=== PATIENT | male | born 1950 | race Caucasian/White ===

== ENCOUNTER 2021-01-15 12:36 | Observation (INO) | payer MEDICARE, BC ==
[~2021-01-15] VITALS: Ht 190.5 cm; Wt 100.2 kg
[~2021-01-15 12:36] MED LIST: ADLT ASA LOW81 MG PO; ELIQUIS5 MG PO; LEVOTHYROXIN125 MCG PO; LIDODERM5 % EX; NORVASC5 M1 PO; OXYCODONE10 M1 PO; PREVAGEN10 MG PO; QC FOLIC ACID800 MCG PO; ZOCOR20 M1 PO
--- NOTE | 2021-01-15 12:40 | NUR ---
TO ROOM FOR TRIAGE
[2021-01-15 13:15] LABS: HEMATOCRIT 44.4 % (39.0-50.0); HEMOGLOBIN 14.4 g/dl (14.0-18.0); IMMATURE GRANULOCYTES 0.1 % (0.0-5.0); MEAN CELL VOLUME 90.2 fL CALC (80.0-100.0); MEAN CORPUSCULAR HGB 29.3 pG CALC (26.0-32.0); MEAN CORPUSCULAR HGB CONC 32.4 g/dL CAL (32.0-36.0); NEUT# 5.37 thou/uL (1.82-7.42); RED BLOOD COUNT 4.92 mill/uL (4.70-6.10); RED CELL DISTRI WIDTH 12.4 % (11.5-15.5)
[2021-01-15 13:31] LABS: ALBUMIN 4.5 g/dL (3.2-5.0); ALKALINE PHOSPHATASE 59 u/l (38-126); AMYLASE 66 u/l (30-110); ANION GAP 13 (6-22 (CALC)); BILIRUBIN, TOTAL 2.9 mg/dL (0.0-1.4); BUN 13 mg/dL (8-23); BUN/CREATININE RATIO 9 (12-20 (CALC)); CARBON DIOXIDE 26 mmol/l (22-30); CHLORIDE 102 mmol/l (95-108); CREATININE 1.5 mg/dL (0.7-1.3); GFR 46 ML/MIN (>=60 (CALC)); GFR FOR AFR.AMER. 56 ML/MIN (>=60 (CALC)); LIPASE 71 u/l (23-300); POTASSIUM 4.3 mmol/l (3.5-5.1); SGOT/AST 27 u/l (19-48); SODIUM 136 mmol/l (137-146); TOTAL PROTEIN 8.1 g/dL (6.3-8.2)
[2021-01-15 13:32] LABS: D-DIMER 0.27 mg/L (0.19-0.60)
--- NOTE | 2021-01-15 13:40 | NUR ---
PATIENT RESTING, SPOUSE AT BEDSIDE, NO DISTRESS. AWAITING RESULTS.
[2021-01-15 13:43] LABS: ACT PARTIAL THROMBO TIME 24.9 SECONDS (20.0-32.5); PROTHROMBIN TIME 10.8 SECONDS (9.0-12.5)
--- NOTE | 2021-01-15 14:30 | NUR ---
PATIENT RESTING, VSS. CONTINUING TO MONITOR, O2 SATS 98% ON 2L VIA NC PLACED BY RT
--- NOTE | 2021-01-15 15:26 | NUR ---
ATTEMPT TO CALL REPORT, NURSE WILL CALL BACK
--- NOTE | 2021-01-15 15:35 | NUR ---
REPORT CALLED TO SHELLY
--- NOTE | 2021-01-15 15:45 | NUR ---
Admission Note Report Given to: Transported by: Wheelchair X Stretcher Transported with: X Nurse Transporter X Patent IV X O2 X Supervisor Ovens Location: ICU X [facility]
--- NOTE | 2021-01-15 15:50 | NUR ---
REPORT RECEIVED FROM ANGELICA. PATIENT CAME FROM ER VIA STRECHTER BY NURSE. PATIENT AMBULATE TO THE BED. VS OBTAIN. SAFETY PRECAUTIONS REINFORCED AND CALL LIGHT IN REACH.
[2021-01-15 16:02] VITALS: BP 146/85
--- NOTE | 2021-01-15 16:10 | NUR ---
ASSESSMENT DONE. PTAIENT IS ALERT AND ORIENT X3. PATIENT IS TALKATIVE. RESPS EVEN AND UNLABORED. O2 AT 2L VIA NC. TELE IN PLACE PATIENT STATED PAIN IN BACK 02/14. 20 RAC THAT APPEAR HEALTHY AND FLUSH WELL. PATIENT DENIES ANY OTHER NEEDS AT THIS TIME. CALL LIGHT IN REACH.
[2021-01-15 19:00] VITALS: BP 133/79
--- NOTE | 2021-01-15 20:00 | NUR ---
PT ASSESSMENT COMPLETED AT THIS TIME. HE DENIES SOB OR CHEST PAIN AT THIS TIME, REPORTS THAT HIS BACK IS HURTING/CHRONIC BACK PAIN, AWAITING ON MEDICATION TO BE APPROVED BY PHARMACY. I CALLED AND CLARIFIED ORDER. DENIES ANY OTHER NEEDS AT THIS TIME.
[2021-01-15 23:30] VITALS: BP 133/72; BP 140/67
--- NOTE | 2021-01-16 | NUR ---
PT MEDICATED FOR PAIN 8/10 ON PAIN SCALE. HE IS MOVING AROUND IN THE BED, TALKATIVE AND LAUGHING. DENIES ANY OTHER COMFORT NEEDS AT THIS TIME. DENIES NEED FOR SNACK OR ALTERNATIVE DRINK OTHER THAN WATER. CALL LIGHT W/IN REACH. I DID ENCOURAGED HIM TO CALL IF HE HAS ANY NEEDS ARISE, VERBALIZED UNDERSTANDING. LAB ENTERING ROOM AT THIS TIME FOR DRAW.
[2021-01-16 03:21] VITALS: BP 110/64
--- NOTE | 2021-01-16 04:00 | NUR ---
IVF REPLENISHED AT THIS TIME. PT DENIES ANY NEEDS, REPORTS "JUST TRYING TO SLEEP."
--- NOTE | 2021-01-16 05:45 | NUR ---
NEW GUARD ARRIVED FOR PT ROOM.
[2021-01-16 06:36] LABS: ALKALINE PHOSPHATASE 45 u/l (38-126); ANION GAP 9 (6-22 (CALC)); BILIRUBIN, TOTAL 2.3 mg/dL (0.0-1.4); BUN 12 mg/dL (8-23); BUN/CREATININE RATIO 10 (12-20 (CALC)); CARBON DIOXIDE 27 mmol/l (22-30); CHLORIDE 105 mmol/l (95-108); CREATININE 1.3 mg/dL (0.7-1.3); GFR 55 ML/MIN (>=60 (CALC)); GFR FOR AFR.AMER. > 60 ML/MIN (>=60 (CALC)); POTASSIUM 4.6 mmol/l (3.5-5.1); SGOT/AST 21 u/l (19-48); SODIUM 136 mmol/l (137-146)
[2021-01-16 06:37] LABS: ALBUMIN 3.4 g/dL (3.2-5.0); TOTAL PROTEIN 6.2 g/dL (6.3-8.2)
[2021-01-16 06:46] LABS: HEMATOCRIT 38.9 % (39.0-50.0); HEMOGLOBIN 12.5 g/dl (14.0-18.0); MEAN CELL VOLUME 93.3 fL CALC (80.0-100.0); MEAN CORPUSCULAR HGB CONC 32.1 g/dL CAL (32.0-36.0); RED BLOOD COUNT 4.17 mill/uL (4.70-6.10); RED CELL DISTRI WIDTH 12.6 % (11.5-15.5)
[2021-01-16 07:26] VITALS: BP 114/64
--- NOTE | 2021-01-16 07:26 | NUR ---
PT SLEEPING UPON ENTERING ROOM. PTS VITALS AND ASSESSMENT DONE. PT ALERT AND ORIENTED. PT IS ON 2L OF O2. S1 AND S2 HEARD. LUNG SOUNDS CLEAR. BOWEL SOUNDS ACTIVE IN ALL 4 QUADRANTS. PEDAL PULSES EQUALLY STRONG BILATERALLY. PT'S IV HEALTHY AND PATENT. NO DISTRESS NOTED. PTS CALL LIGHT WITHIN REACH.
--- NOTE | 2021-01-16 08:10 | NUR ---
PT TAKEN VIA WC TO NUCLEAR MEDICINE FOR ORDERED ED TEST. PT IN STABLE CONDITION WITH O2 VIA NC @2L.
[2021-01-16 08:39] LABS: CHOLESTEROL HDL RATIO 1.9 (<4.4 (CALC))
--- NOTE | 2021-01-16 08:44 | NUR ---
PT ARRIVED FROM NUCLEAR MEDICINE IN STABLE CONDITION. PT WAS ON O2 VIA NC @2L, DENIES HOME USE, DENIES ANY SOB INCLUDING EXERTIONAL SOB. O2 CURRENTLY 100%, TITRATED DOWN TO 1 L, O2 SUSTAINING @ 100%. PT WEANED OFF OF O2, SUSTAINING 100%. PT ENCOURAGED TO PRESS CALL LIGHT IF HE WAS FEELING SOB. PT AGREEABLE AND VERBALIZES UNDERSTANDING.
--- NOTE | 2021-01-16 09:20 | NUR ---
DR ADAMS AND Rajesh AYALA SECURITY EXPERT AT BEDSIDE DISCUSSING POC
--- NOTE | 2021-01-16 09:50 | NUR ---
A FREDERICK ALEXANDER AT [facility] TO COMPLETE 6 MIN WALK TEST
[2021-01-16 10:32] VITALS: BP 119/66
--- NOTE | 2021-01-16 17:22 | NUR ---
Discharge instructions given. Patient verbalizes understanding of same. Discharged in stable condition via Wheelchair to Home with spouse AND STAFF. All belongings sent with pt.
== END 2021-01-16 12:50 | disposition home or self-care (01) ==
LOC: ED 12:36 → ED-I 14:50 → ED 15:14 → MS2 15:15
PROVIDERS: Nurse Practitioner; ADMIT Hospitalist; ATTEND Hospitalist
DX: R07.89 Other chest pain (principal); R06.02 Shortness of breath; I10 Essential (primary) hypertension; E78.5 Hyperlipidemia, unspecified; E03.9 Hypothyroidism, unspecified; M47.9 Spondylosis, unspecified; Z88.8 Allergy status to other drugs, medicaments and biological substances; Z86.718 Personal history of other venous thrombosis and embolism; Z79.01 Long term (current) use of anticoagulants; Z95.828 Presence of other vascular implants and grafts; Z20.822 Contact with and (suspected) exposure to COVID-19
CPT/HCPCS: A9540; A9567; G0378

== ENCOUNTER 2023-01-14 10:32 | Day surgery (SDC) | payer MEDICARE, BC ==
[~2023-01-14] VITALS: Ht 190.5 cm; Wt 99.8 kg
[2023-01-14] MEDS ORDERED: OMEPRAZOLE DR40 MG PO (12:24)
[2023-01-14 12:25] VITALS: BP 130/86
== END 2023-01-14 12:43 | disposition home or self-care (01) ==
LOC: ENDO 10:32 → ORM 13:25 → ENDO 13:25 → ORM 14:55
PROVIDERS: ATTEND Internal Medicine Gastroenterology
PROC: 0D738ZZ Dilation of Lower Esophagus, Via Natural or Artificial Opening Endoscopic (ICD-10-PCS; principal; 2023-01-14)
PROC: 0DB98ZX Excision of Duodenum, Via Natural or Artificial Opening Endoscopic, Diagnostic (ICD-10-PCS; 2023-01-14)
PROC: 0DB78ZX Excision of Stomach, Pylorus, Via Natural or Artificial Opening Endoscopic, Diagnostic (ICD-10-PCS; 2023-01-14)
PROC: 0DB28ZX Excision of Middle Esophagus, Via Natural or Artificial Opening Endoscopic, Diagnostic (ICD-10-PCS; 2023-01-14)
PROC: 0DB38ZX Excision of Lower Esophagus, Via Natural or Artificial Opening Endoscopic, Diagnostic (ICD-10-PCS; 2023-01-14)
DX: K22.2 Esophageal obstruction (principal); K29.80 Duodenitis without bleeding; K29.50 Unspecified chronic gastritis without bleeding; E06.3 Autoimmune thyroiditis; N18.30 Chronic kidney disease, stage 3 unspecified; E78.5 Hyperlipidemia, unspecified; I65.9 Occlusion and stenosis of unspecified precerebral artery; Z86.718 Personal history of other venous thrombosis and embolism